=== PATIENT | female | born 1995 | race African-American/Black ===

== ENCOUNTER 2024-05-09 13:44 | Outpatient (CLI) | payer MEDICAID, SELFPAY ==
[2024-05-09 13:54] VITALS: BP 109/59; PULSE 92
[2024-05-09 14:12] VITALS: BMI 24.3
[2024-05-09 14:52] LABS: Bilirubin Urine Negative (Negative); Blood Urine Negative (Negative); Glucose Urine UA Negative (Normal); Ketones Urine Negative (Negative); Leukocyte Esterase Urine Negative (Negative); Nitrate Urine Negative (Negative); Protein Urine Negative (Negative); Urine Appearance Clear (CLEAR); Urine Color Yellow (Yellow)
[2024-05-09 15:00] LABS: Bacteria Urine 1+ /hpf; Hyaline Casts Urine 0-4 /lpf; RBC Urine 0-2 /hpf (0-2); Squamous Epithelial Cell Urine 0-5 /hpf (0-5); WBC Urine 0-5 /hpf (0-5)
== END 2024-05-09 15:13 | disposition home or self-care (01) ==
LOC: OPOB 13:49 → OBGYN 13:52
PROVIDERS: Visit Provider Obstetrics & Gynecology
DX: O26.899 Other specified pregnancy related conditions, unspecified trimester (principal); Z3A.00 Weeks of gestation of pregnancy not specified; R42 Dizziness and giddiness
CPT/HCPCS: 81001; 99211

== ENCOUNTER → 2024-07-17 16:36 | Outpatient (BNVA) | payer MEDICAID, SELFPAY | PROVIDERS: PCP Nurse Practitioner; Visit Provider Nurse Practitioner | DX: Z33.1 Pregnant state, incidental (principal); R05.9 Cough, unspecified | CPT/HCPCS: 87400; 87426; 87491; 87591 ==

== ENCOUNTER 2024-07-24 14:55 | Outpatient (CLI) | payer MEDICAID, SELFPAY ==
[2024-07-24 14:55] VITALS: BMI 25.1
[2024-07-24 15:09] VITALS: BP 110/63; PULSE 95
[2024-07-24 15:18] VITALS: RESP 16; TEMP 35.8
[2024-07-24 15:30] VITALS: BP 102/61; PULSE 95
[2024-07-24 15:49] VITALS: BP 102/62; PULSE 93
[2024-07-24 16:10] VITALS: BP 103/66; PULSE 98
== END 2024-07-24 16:14 | disposition home or self-care (01) ==
LOC: OPOB 15:03 → OBGYN 15:05
PROVIDERS: PCP Nurse Practitioner; Visit Provider Family Medicine
DX: O36.8190 Decreased fetal movements, unspecified trimester, not applicable or unspecified (principal); Z3A.00 Weeks of gestation of pregnancy not specified
CPT/HCPCS: 59025; 99211